=== PATIENT | female | born 1975 | race Caucasian/White ===

== ENCOUNTER 2017-05-11 16:48 | Emergency (ER) | payer MEDICAID, OTHER ==
[~2017-05-11] VITALS: Ht 152.4 cm; Wt 89.0 kg
[2017-05-11 16:51] VITALS: Ht 152.4 cm; Wt 89.0 kg
[2017-05-11] MEDS ORDERED: MECLIZINE 12.5 MG TAB PO STA (17:21)
[2017-05-11] MEDS ORDERED: ONDANSETRON (ODT) 4 MG TAB ODT STA (17:21)
--- NOTE | 2017-05-11 17:32 | ERD ---
ER Documentation Chief Complaint Date/Time DATE: 05/11/17 TIME: 17:26 Chief Complaint FEELS DIZZY, MCRAE HPI This is a 41-year-old female presenting to the emergency department complaining of dizziness, describing it when she turns her head especially to the left, describing it went as the room spinning for the past 4 days. She complains of headache rating it moderate in severity. Patient also admits to associated nausea, tinnitus. She denies any vomiting, vision changes, abdominal pain, shortness of breath or chest pain. Patient has not tried any medications for this. She also admits to having right ear pain. Denies any recent fevers. ROS All systems reviewed and are negative except as per history of present illness. Medications Home Meds Active Scripts Ondansetron (Ondansetron Odt) 4 Mg Tab.rapdis, 4 MG PO Q6H Y for NAUSEA AND/OR VOMITING, #10 TAB Prov:BECCA SOTO PA-C 05/11/17 Meclizine Hcl* (Antivert*) 12.5 Mg Tab, 25 MG PO Q6H Y for DIZZINESS, #30 TAB Prov:BECCA SOTO PA-C 05/11/17 Acetaminophen* (Tylenol*) 325 Mg Tablet, 2 TAB PO Q4 Y for PAIN AND OR ELEVATED TEMP, #30 TAB Prov:BECCA SOTO PA-C 05/11/17 Allergies Allergies: Coded Allergies: No Known Allergy (Unverified , 05/11/17) Physical Exam Vitals Vital Signs Date Time Temp Pulse Resp B/P Pulse Ox O2 Delivery O2 Flow Rate FiO2 05/11/17 16:51 98.1 80 20 148/80 99 Physical Exam GENERAL: well-developed/well-nourished, in no apparent distress, non-toxic appearing HENT: NC/AT, bilateral tympanic membrane is normal with good cone of light, nares patent, oropharynx clear without exudates EYES: Conjunctiva normal, PERRLA, EOMI, no nystagmus noted NECK: Supple, no lymphadenopathy PULM: CTA bilaterally, no rales, rhonchi, or wheezing heard CV: Normal S1S2, RRR, good capillary refill GI: Soft, non-distended, normal bowel sounds, non-tender BACK: No midline tenderness, no masses, No CVAT EXT: No clubbing, cyanosis, or edema NEURO: Alert and orientated to person, place, and time. CN II-IIX intact. Gait and coordination were normal. Hand patient support specialist strength were equal and within normal limits SKIN: Intact, normal turgor PSYCH: Normal mood and mentation, patient denied SI Results 24 hrs Current Medications Medications (Trade) Dose Ordered Sig/Tuan Route PRN Reason Start Time Stop Time Status Last Admin Dose Admin Ondansetron HCl (Zofran Odt) 8 mg ONCE STAT ODT 05/11/17 17:21 05/11/17 17:23 DC 05/11/17 17:34 Meclizine HCl (Antivert) 25 mg ONCE STAT PO 05/11/17 17:21 05/11/17 17:23 DC 05/11/17 17:34 Acetaminophen (Tylenol Tab) 1,000 mg ONCE STAT PO 05/11/17 18:52 05/11/17 18:54 DC 05/11/17 19:04 Procedures/MDM 41 year old female presents to the ER with vertigo, headache, tinnitus and ear pain. Symptoms were reproduced with movement of head to the left. Likely peripheral vertigo and can be managed outpatient neurologist. Patient felt better after meclizine and zofran. Differentials include but not limited to BPV , labyrinthitis, vestibular neuritis, Mnire's disease, acoustic neuroma, otitis media and central causes such as vestibular migraine, brainstem ischemia , and multiple sclerosis. Patient did not have neurological symptoms. CT showed - No mass effect or acute intracranial bleed. Nonspecific bilateral basal ganglia calcifications, which may be senescent, or may reflect underlying metabolic process such as hyperparathyroidism. Diagnostic testing has been provided to the patient and discussed with her to follow-up with an outpatient neurologist. I have given strict precautions to return to the ER if condition is not improving as expected or if condition worsens. DISPOSITION: hemodynamically stable. I have discussed the pathology of the condition. Prescriptions have been given. I have discussed to see a primary care physician for follow-up examination and management. Discussed to return to the ER if condition worsens or not improves as expected. Patient expressed that they agreed and understood this plan. Departure Diagnosis: Primary Impression: Vertigo Additional Impression: Headache Condition: Stable BECCA SOTO PA-C May 11, 2017 17:32
--- NOTE | 2017-05-11 18:45 | RADRPT ---
PROCEDURE: CT Head without contrast. CLINICAL INDICATION: vertigo, tinnitus TECHNIQUE: Continuous axial CT images were obtained from the base of skull to the vertex. No cont rast was administered. The calculated radiation dose measures 720 mGy centimeters. The CTDI measures 44 mGy COMPARISON: None available FINDINGS: The ventricles are symmetric and normal in size. There is no mass effect or midline shift. There i s no abnormal intra-axial or extra-axial fluid collection. There is no evidence of intracranial hem orrhage. There is bilateral basal ganglia calcification. The bony calvarium is intact. The orbital soft tissue contents are unremarkable. Paranasal sinuses appear clear IMPRESSION: No mass effect or acute intracranial bleed. Nonspecific bilateral basal ganglia calcifications, whic h may be senescent, or may reflect underlying metabolic process such as hyperparathyroidism. RPTAT: HBST .Curt Tellez MD, MD Date Time Electronically viewed and signed by .Curt Tellez MD, on 05/11/2017 18:45 .T/
[2017-05-11] MEDS ORDERED: ACETAMINOPHEN 500 MG TAB PO STA (18:52)
[2017-05-11] MEDS ORDERED: ONDA4TAB14 PO (19:10)
[2017-05-11] MEDS ORDERED: ACET325T33 PO (19:10)
[2017-05-11] MEDS ORDERED: MECL12.574 PO (19:10)
== END 2017-05-11 19:33 | disposition home or self-care (01) ==
LOC: FTE 16:48
DX: R42 Dizziness and giddiness (principal); R51 Headache; R11.0 Nausea
CPT/HCPCS: 70450; Z7502; Z7610

== ENCOUNTER 2018-02-23 09:41 | Day surgery (SDC) | END 2018-02-23 14:00 | disposition home or self-care (01) ==